=== PATIENT | female | born 1985 ===

== ENCOUNTER 2017-05-22 17:49 | Emergency (ER) | payer OTHER, SELFPAY ==
[2017-05-22 17:50] VITALS: BMI 46.5
[2017-05-22 18:10] VITALS: TEMP 97.9; O2SAT 99
--- NOTE | 2017-05-22 19:54 | C.PDOC ---
History Of Present Illness 31 year old female presents to the ED with complaints of generalized joint pain for one week and is requesting evaluation. Patient states she has experienced similar symptoms before for years and has followed up but is unsure of condition. Patient denies the use of any pain medications, fever, or numbness. Time Seen by Provider: 05/22/17 19:08 Chief Complaint (Nursing): Lower Extremity Problem/Injury History Per: Patient History/Exam Limitations: no limitations Onset/Duration Of Symptoms: Intermittent Episodes (patient notes years of similiar symptoms ) Current Symptoms Are (Timing): Still Present Recent travel outside of the [place]: No Past Medical History Reviewed: Historical Data, Nursing Documentation, Vital Signs Vital Signs: Last Vital Signs Temp 97.9 F 05/22/17 18:06 Pulse 81 05/22/17 20:01 Resp 16 05/22/17 20:01 BP 128/82 05/22/17 20:01 Pulse Ox 99 05/22/17 21:07 Family History: States: Unknown Family Hx - Social History Hx Tobacco Use: No Hx Alcohol Use: No Hx Substance Use: No - Immunization History Hx Tetanus Toxoid Vaccination: No Hx Influenza Vaccination: No Hx Pneumococcal Vaccination: No Review Of Systems Constitutional: Negative for: Fever, Chills Cardiovascular: Negative for: Chest Pain, Palpitations Respiratory: Negative for: Cough, Shortness of Breath Gastrointestinal: Negative for: Nausea, Vomiting, Abdominal Pain, Diarrhea Musculoskeletal: Positive for: Other (generalized joint pain ) Neurological: Negative for: Weakness, Numbness Physical Exam - Physical Exam Appears: Non-toxic, No Acute Distress, Other (patient is obese) Skin: Warm, Dry Head: Atraumatic Eye(s): bilateral: Normal Inspection, PERRL, EOMI Oral Mucosa: Moist Neck: Supple Lymphatic: Normal Exam Chest: Symmetrical, No Deformity Cardiovascular: Rhythm Regular Respiratory: Normal Breath Sounds, No Rales, No Rhonchi, No Wheezing Gastrointestinal/Abdominal: Soft, No Tenderness, No Distention, No Guarding, No Rebound Extremity: Normal ROM, No Tenderness, No Calf Tenderness, Capillary Refill ( good capillary refill, less than two seconds ), No Swelling Neurological/Psych: Oriented x3 Gait: Steady ED Course And Treatment O2 Sat by Pulse Oximetry: 99 (room air ) Progress Note: Patient was given motrin. Disposition Counseled Patient/Family Regarding: Diagnosis, Need For Followup, Rx Given - Disposition Referrals: [facility] [Outside] Disposition: HOME/ ROUTINE Disposition Time: 19:52 Condition: STABLE Additional Instructions: Shirley las medicina Sigue en clinica Regresa si peor Prescriptions: Ibuprofen [Motrin] 600 mg PO Q6H #20 tab Instructions: Musculoskeletal Pain (ED) Print Language: CYMRAES - Clinical Impression Clinical Impression: Myalgia - Scribe Statement The provider has reviewed the documentation as recorded by the Scribe Rosa Ibrahim All medical record entries made by the Teresaibhiram were at my direction and personally dictated by me. I have reviewed the chart and agree that the record accurately reflects my personal performance of the history, physical exam, medical decision making, and the department course for this patient. I have also personally directed, reviewed, and agree with the discharge instructions and disposition.
[2017-05-22 20:02] VITALS: BP 128/82; PULSE 81; RESP 16
== END 2017-05-22 20:01 | disposition home or self-care (01) ==
LOC: C.ER 17:49
DX: M79.1 Myalgia (principal)

== ENCOUNTER 2017-06-14 17:55 | Emergency (ER) | payer OTHER ==
[2017-06-14 17:55] VITALS: BMI 46.5
[2017-06-14 18:09] VITALS: RESP 18
--- NOTE | 2017-06-14 19:29 | C.PDOC ---
History Of Present Illness 31 y/o female presents to the ED for evaluation of left foot pain and swelling s /p trip and fall today. Otherwise, denies any extremity weakness/numbness, skin changes, fever, or any other associated symptoms at this time. Time Seen by Provider: 06/14/17 18:45 Chief Complaint (Nursing): Lower Extremity Problem/Injury History Per: Patient History/Exam Limitations: no limitations Onset/Duration Of Symptoms: Hrs Current Symptoms Are (Timing): Still Present Recent travel outside of the [place]: No Additional History Per: Patient - Ankle/Foot Description Of Injury: Fell, Twisted Past Medical History Reviewed: Historical Data, Nursing Documentation, Vital Signs Vital Signs: Last Vital Signs Temp 98.4 F 06/14/17 19:48 Pulse 69 06/14/17 19:48 Resp 18 06/14/17 19:48 BP 105/69 06/14/17 19:48 Pulse Ox 98 06/14/17 19:48 Family History: States: Unknown Family Hx - Social History Hx Tobacco Use: No Hx Alcohol Use: No Hx Substance Use: No - Immunization History Hx Tetanus Toxoid Vaccination: No Hx Influenza Vaccination: No Hx Pneumococcal Vaccination: No Review Of Systems Except As Marked, All Systems Reviewed And Found Negative. Constitutional: Negative for: Fever, Chills Musculoskeletal: Positive for: Foot Pain (left) Skin: Negative for: Rash, Bruising Neurological: Negative for: Weakness, Numbness Physical Exam - Physical Exam Appears: Non-toxic, No Acute Distress Skin: Normal Color, Warm, Dry, No Ecchymosis (left foot) Head: Atraumatic, Normacephalic Extremity: Normal ROM (FROM of left foot), Tenderness (mild tenderness to lateral aspect of left foot), No Calf Tenderness, Capillary Refill (< 2 sec.), No Deformity, Swelling (mild swelling to lateral aspect of left foot) Extremity: Bilateral: Normal Color And Temperature, Normal ROM Pulses: Left Dorsalis Pedis: Normal, Right Dorsalis Pedis: Normal Neurological/Psych: Oriented x3, Normal Speech, Normal Motor, Normal Sensation ED Course And Treatment O2 Sat by Pulse Oximetry: 97 (RA) Pulse Ox Interpretation: Normal - Other Rad Left foot x-ray X-Ray: Interpreted by Me, Viewed By Me Interpretation: No acute fracture or dislocation. Progress Note: Left foot x-ray ordered and reviewed. Patient was treated with Motrin. On reassessment, patient is resting comfortably, and is in no acute distress. Patient was instructed to follow up with physician/clinic in 1-2 days. Disposition Counseled Patient/Family Regarding: Need For Followup, Rx Given - Disposition Referrals: [facility] [Outside] Disposition: HOME/ ROUTINE Disposition Time: 19:38 Condition: STABLE Additional Instructions: Your xray was normal, no fracture. Please apply ice to area 15 minutes three times a day. Take Motrin as needed for pain every 6 hours, with food to not upset stomach. Follow up with orthopedic if pain persists over one week. 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 - Scribe Statement The provider has reviewed the documentation as recorded by the Teresaibhiram Lyles All medical record entries made by the Jayden were at my direction and personally dictated by me. I have reviewed the chart and agree that the record accurately reflects my personal performance of the history, physical exam, medical decision making, and the department course for this patient. I have also personally directed, reviewed, and agree with the discharge instructions and disposition.
[2017-06-14] MEDS ORDERED: Tmp-Smz 800 mg-160 mg DS Tab PO STA (19:36)
[2017-06-14 19:50] VITALS: BP 105/69; PULSE 69; TEMP 98.4
[2017-06-14 20:05] VITALS: O2SAT 97
--- NOTE | 2017-06-15 10:27 | RAD ---
PROCEDURE: Left Foot Radiographs. HISTORY: pain s.p injury COMPARISON: None available. FINDINGS: BONES: No acute displaced fracture. JOINTS: No dislocation. SOFT TISSUES: Soft tissue swelling. No evidence of radiopaque foreign body. OTHER FINDINGS: None. IMPRESSION: Soft tissue swelling. No acute displaced fracture or dislocation identified.If symptoms persist, or if there is continued clinical concern, x-ray follow-up in 7-10 days should be considered.
== END 2017-06-14 19:49 | disposition home or self-care (01) ==
LOC: C.ER 17:55
DX: S93.602A Unspecified sprain of left foot, initial encounter (principal); W01.0XXA Fall on same level from slipping, tripping and stumbling without subsequent striking against object, initial encounter